=== PATIENT | female | born 1945 | race Caucasian/White ===

== ENCOUNTER → 2021-12-21 08:53 | Outpatient (CLI) | payer MEDICARE, OTHER, SELFPAY ==
--- NOTE | 2021-12-21 | DI.RAD.S_ITS ---
PROCEDURE: XR LUMBAR SPINE 2-3V INDICATIONS: Cervicalgia,Dorsalgia, unspecified TECHNIQUE: 3 views of the lumbar spine were acquired. COMPARISON: None. FINDINGS: Bones: Disc space narrowing and moderate hypertrophic facet joints noted in the lower lumbar spine associated with trace anterior spondylolisthesis at L4-5. Vertebral body height and alignment is otherwise maintained. Generalized decrease in osseous mineralization noted. Soft tissues: Overlying bowel gas pattern is normal. No suspicious soft tissue calcifications. 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 on 12/21/2021 at 11:14
--- NOTE | 2021-12-21 | DI.RAD.S_ITS ---
PROCEDURE: XR CERVICAL SPINE 2V OR 3V INDICATIONS: Cervicalgia,Dorsalgia, unspecified TECHNIQUE: 3 view(s) of the cervical spine were acquired. COMPARISON: None. FINDINGS: Bones: No fractures or dislocations to the T1 level. The lateral masses of C1 appear intact on the odontoid view. No suspicious bony lesions. Mild disc space narrowing noted at C5-6 and C6-7. Craniovertebral relationships and bone mineralization unremarkable. Soft tissues: No prevertebral soft tissue swelling. IMPRESSION: Mild degenerative disc disease without fracture or malalignment. Approved by: Colin Martinez M.D. on 12/21/2021 at 11:39
--- NOTE | 2021-12-21 | DI.RAD.S_ITS ---
PROCEDURE: XR THORACIC SPINE 3V INDICATIONS: Cervicalgia,Dorsalgia, unspecified TECHNIQUE: 3 views of the thoracic spine were acquired. COMPARISON: None. FINDINGS: Bones: No fractures or dislocations. No suspicious bony lesions. 12 pairs of ribs are noted, and appear intact where visualized. Generalized decrease in osseous mineralization noted. Soft tissues: No paravertebral stripe thickening. IMPRESSION: Osteopenia without fracture or malalignment Approved by: Colin Martinez M.D. on 12/21/2021 at 11:16
== END ==
PROVIDERS: PCP Specialist; Referring Provider Chiropractor; Visit Provider Chiropractor
DX: M51.16 Intervertebral disc disorders with radiculopathy, lumbar region (principal); M47.26 Other spondylosis with radiculopathy, lumbar region; M50.322 Other cervical disc degeneration at C5-C6 level; M85.88 Other specified disorders of bone density and structure, other site
CPT/HCPCS: 72040; 72072; 72100

== ENCOUNTER → 2022-06-13 14:38 | Outpatient (CLI) | payer MEDICARE, OTHER, SELFPAY ==
--- NOTE | 2022-06-13 | DI.MG.S_ITS ---
BILATERAL DIGITAL SCREENING MAMMOGRAM 3D/2D WITH CAD: 06/13/2022 CLINICAL: Routine screening. Comparison is made to exams dated: 07/30/2019 mammogram, 07/04/2017 mammogram, and 09/21/2010 mammogram - [facility]. The tissue of both breasts is heterogeneously dense. This may lower the sensitivity of mammography. Current study was also evaluated with a Computer Aided Detection (CAD) system. No significant masses, calcifications, or other findings are seen in either breast. There has been no significant interval change. IMPRESSION: NEGATIVE There is no mammographic evidence of malignancy. A 1 year screening mammogram is recommended. Based on the Tyrer Cuzick model (a risk assessment model) the patient's lifetime risk is 4.4% and her 10 year risk is 4.4%. According to the ACR, ACS, and NCCN guidelines, an annual breast MRI exam along with mammogram is recommended if the patient's lifetime risk is 20% or greater. This exam was interpreted at Station ID: [id number]. NOTE: For mammograms, a report in lay terms will be sent to the patient. Approximately 15% of breast malignancies will not be visualized mammographically. In the management of a palpable breast mass, a negative mammogram must not discourage biopsy of a clinically suspicious lesion. Electronically Signed By: Jostin snider/kodi:06/13/2022 17:26:09 letter sent: Normal Exam ACR BI-RADS Category 1: Negative [id number]
== END ==
PROVIDERS: PCP Specialist; Referring Provider Specialist; Visit Provider Specialist
DX: Z12.31 Encounter for screening mammogram for malignant neoplasm of breast (principal)
CPT/HCPCS: 77063; 77067